=== PATIENT | male | born 1945 | race Caucasian/White ===

== ENCOUNTER → 2021-01-04 | Outpatient (CLI) | payer MEDICARE, BC ==
[~2021-01-04] MED LIST: ASPIRIN E.C. 8181 MG PO; CALCIUM + D 6001 TA1 PO; MVI; VITAMIN C500 MG PO; VITAMIN D5000 IU PO
== END ==
LOC: COL.RAD 09:04
DX: Z12.2 Encounter for screening for malignant neoplasm of respiratory organs (principal); Z13.6 Encounter for screening for cardiovascular disorders

== ENCOUNTER → 2021-12-27 | Outpatient (CLI) | payer MEDICARE, BC | LOC: COL.VAS 07:20 | DX: R01.1 Cardiac murmur, unspecified (principal) ==

== ENCOUNTER → 2023-01-19 | Outpatient (CLI) | payer MEDICARE, BC | LOC: CANSCHCLI → COL.RAD 01-12 10:00 | DX: Z12.2 Encounter for screening for malignant neoplasm of respiratory organs (principal); Z87.891 Personal history of nicotine dependence ==

== ENCOUNTER → 2023-05-12 | Outpatient (CLI) | payer MEDICARE, BC | LOC: MHCPAIN 14:48 | DX: M54.16 Radiculopathy, lumbar region (principal); I10 Essential (primary) hypertension; G89.29 Other chronic pain | CPT/HCPCS: G0463 ==

== ENCOUNTER → 2024-01-21 | Outpatient (CLI) | payer MEDICARE, BC | LOC: COL.RAD 07:44 | DX: Z12.2 Encounter for screening for malignant neoplasm of respiratory organs (principal); Z87.891 Personal history of nicotine dependence ==